=== PATIENT | female | born 1985 | race Two or more races ===

== ENCOUNTER 2020-07-02 11:56 | Emergency (ER) | payer OTHER ==
[2020-07-02 12:19] VITALS: BP 107/72; PULSE 80; TEMP 97.8; BMI 21.5
== END 2020-07-02 13:13 | disposition home or self-care (01) ==
LOC: JERFT 11:56
PROC: 0HQGXZZ Repair Left Hand Skin, External Approach (ICD-10-PCS; principal; 2020-07-02)
DX: S61.412A Laceration without foreign body of left hand, initial encounter (principal)
CPT/HCPCS: 99282-25

== ENCOUNTER 2020-07-09 11:54 | Emergency (ER) | payer OTHER ==
[2020-07-09 12:01] VITALS: BP 118/66; PULSE 78; TEMP 97.7; BMI 21.5
== END 2020-07-09 12:43 | disposition home or self-care (01) ==
LOC: JERFT 11:54
DX: Z48.02 Encounter for removal of sutures (principal)
CPT/HCPCS: 99281-25